=== PATIENT | female | born 1950 ===

== ENCOUNTER → 2017-04-07 | Outpatient (CLI) | payer OTHER ==
[~2017-04-07] MED LIST: ACET500 PO; AMLO5 PO; ASPI325 PO; ATEN50 PO; Ativan1 MG PO; CHOL10002 PO; CLON.1 PO; FURO20 PO; HYDCHL25 PO; LEVSOD100 PO; LOSA50 PO; METO25ER PO; NEBI5 PO; NIFE30ER PO; Nitrostat0.4 MG SL; POTCHL10ER PO; PROAIR RESPICL90 MCG INH; ROSU10TA PO; WATER PILL?
[2017-04-07 17:17] LABS: BASOPHILS ABSOLUTE AUTO 0.07 K/mm3 (0.00-0.23); BASOPHILS PERCENT AUTO 1 % (0-2); EOSINOPHILS ABSOLUTE AUTO 0.32 K/mm3 (0.00-0.68); EOSINOPHILS PERCENT AUTO 4 % (0-6); Hematocrit 38.3 % (33.0-51.0); Hemoglobin 12.7 g/dL (11.5-16.0); IMMATURE GRAN ABSOLUTE AUTO 0.01 K/mm3 (0.00-0.10); IMMATURE GRAN PERCENT AUTO 0 % (0-1); LYMPHOCYTES ABSOLUTE AUTO 2.33 K/mm3 (0.84-5.20); LYMPHOCYTES PERCENT AUTO 27 % (21-46); MONOCYTES ABSOLUTE AUTO 0.68 K/mm3 (0.16-1.47); MONOCYTES PERCENT AUTO 8 % (4-13); Mean Corpuscular HGB 28.2 pg (26.0-34.0); Mean Corpuscular HGB Conc 33.2 g/dL (31.5-36.5); Mean Corpuscular Volume 85 fL (80-100); Mean Platelet Volume 10.1 fL (9.1-12.4); NEUTROPHILS PERCENT AUTO 60 % (41-73); Platelet Count 301 K/mm3 (150-400); RDW Coefficient Variation 12.8 % (11.7-14.2); RDW Standard Deviation 39.2 fL (35.1-46.3); Red Blood Cell Count 4.51 M/mm3 (3.80-5.20); White Blood Cell Count 8.61 K/mm3 (4.00-11.30)
== END | disposition home or self-care (01) ==
LOC: LAB 15:32
PROVIDERS: Hospitalist
DX: R10.84 Generalized abdominal pain (principal)
CPT/HCPCS: 85025; 85651

== ENCOUNTER 2019-04-01 04:11 | Emergency (ER) | payer OTHER ==
[~2019-04-01] VITALS: Ht 149.9 cm; Wt 81.7 kg
[~2019-04-01 04:11] MED LIST changes: +NEBI10 PO; -NEBI5 PO
[2019-04-01 04:38] LABS: BASOPHILS ABSOLUTE AUTO 0.04 K/mm3 (0.00-0.23); BASOPHILS PERCENT AUTO 1 % (0-2); EOSINOPHILS ABSOLUTE AUTO 0.22 K/mm3 (0.00-0.68); EOSINOPHILS PERCENT AUTO 3 % (0-6); Hematocrit 41.6 % (33.0-51.0); Hemoglobin 13.6 g/dL (11.5-16.0); IMMATURE GRAN ABSOLUTE AUTO 0.02 K/mm3 (0.00-0.10); IMMATURE GRAN PERCENT AUTO 0 % (0-1); LYMPHOCYTES ABSOLUTE AUTO 1.65 K/mm3 (0.84-5.20); LYMPHOCYTES PERCENT AUTO 23 % (21-46); MONOCYTES ABSOLUTE AUTO 0.51 K/mm3 (0.16-1.47); MONOCYTES PERCENT AUTO 7 % (4-13); Mean Corpuscular HGB 28.3 pg (26.0-34.0); Mean Corpuscular HGB Conc 32.7 g/dL (31.5-36.5); Mean Corpuscular Volume 87 fL (80-100); NEUTROPHILS ABSOLUTE AUTO 4.73 K/mm3 (1.96-9.15); NEUTROPHILS PERCENT AUTO 66 % (41-73); Platelet Count 245 K/mm3 (150-400); RDW Coefficient Variation 12.7 % (11.7-14.2); RDW Standard Deviation 40.3 fL (35.1-46.3); White Blood Cell Count 7.17 K/mm3 (4.00-11.30)
[2019-04-01 05:00] LABS: Albumin, Blood 3.5 g/dL (3.4-5.0); Albumin/Globulin Ratio 0.8 (0.8-1.8); Bilirubin, Total 0.4 mg/dL (0.1-1.0); Bun/Creatinine Ratio 19.3 (12.0-20.0); Calcium, Blood 9.6 mg/dL (8.5-10.1); Creatinine, Blood 1.14 mg/dL (0.40-1.00); Globulin, Blood 4.5 g/dL (2.2-4.0); Potassium, Blood 3.9 mmol/L (3.5-5.5)
[2019-04-01] MEDS ORDERED: Valium5 MG PO (05:58)
[2019-04-01] MEDS ORDERED: Zofran4 MG PO (05:58)
== END 2019-04-01 07:48 | disposition home or self-care (01) ==
LOC: ER 04:11
PROVIDERS: Emergency Medicine
DX: R42 Dizziness and giddiness (principal); I10 Essential (primary) hypertension; I25.10 Atherosclerotic heart disease of native coronary artery without angina pectoris; E78.5 Hyperlipidemia, unspecified; E03.9 Hypothyroidism, unspecified; F41.0 Panic disorder [episodic paroxysmal anxiety]; Z88.8 Allergy status to other drugs, medicaments and biological substances; Z79.899 Other long term (current) drug therapy; Z79.51 Long term (current) use of inhaled steroids; Z79.82 Long term (current) use of aspirin
CPT/HCPCS: 36415; 80053; 85025; 93005; 93010; 96374; 96375; 99284-25; J2405; J3360

== ENCOUNTER → 2019-12-13 | Outpatient (CLI) | payer OTHER ==
[~2019-12-13] MED LIST changes: +IBUP600 PO; +NITR.4SL SL; +PROAIR DIGIHAL90 MCG; +Ultram50 MG PO; +Valium5 MG PO; +Zofran4 MG PO
[2019-12-13 15:27] LABS: Bun/Creatinine Ratio 30.8 (12.0-20.0); Calcium, Blood 9.7 mg/dL (8.5-10.1); Creatinine, Blood 1.17 mg/dL (0.40-1.00); Potassium, Blood 4.6 mmol/L (3.5-5.5)
== END | disposition home or self-care (01) ==
LOC: LAB SHORT 13:37 → LAB 13:37
PROVIDERS: Hospitalist
DX: E03.9 Hypothyroidism, unspecified (principal); I10 Essential (primary) hypertension
CPT/HCPCS: 80048; 84439; 84443

== ENCOUNTER → 2021-02-25 | Outpatient (CLI) | payer OTHER ==
[2021-02-25 15:36] LABS: Albumin, Blood 3.3 g/dL (3.4-5.0); Albumin/Globulin Ratio 0.8 (0.8-1.8); Bilirubin, Total 0.5 mg/dL (0.1-1.0); Bun/Creatinine Ratio 23.4 (12.0-20.0); Calcium, Blood 9.3 mg/dL (8.5-10.1); Creatinine, Blood 1.24 mg/dL (0.40-1.00); Free Thyroxine 1.45 ng/dL (0.70-1.60); Globulin, Blood 4.3 g/dL (2.2-4.0); Potassium, Blood 4.3 mmol/L (3.5-5.5); Thyroid Stimulating Hormone 0.578 uIU/mL (0.360-4.800); Total Protein, Blood 7.6 g/dL (6.4-8.2); Triiodothyronine, Free 2.55 pg/mL (2.18-3.98)
== END | disposition home or self-care (01) ==
LOC: LAB SHORT 09:25
PROVIDERS: Hospitalist
DX: E03.9 Hypothyroidism, unspecified (principal); N25.81 Secondary hyperparathyroidism of renal origin; I10 Essential (primary) hypertension
CPT/HCPCS: 80053; 83970; 84439; 84443; 84481

== ENCOUNTER 2021-06-03 08:39 | Day surgery (SDC) | payer OTHER ==
[~2021-06-03] VITALS: Ht 147.3 cm; Wt 82.8 kg
[2021-06-03] MEDS ORDERED: MIRALAX17 GM (09:27)
[2021-06-03] MEDS ORDERED: VITAMIN D33000 UNIT (09:27)
== END 2021-06-03 11:09 | disposition home or self-care (01) ==
LOC: ORSCSDS 08:39
PROVIDERS: Student in an Organized Health Care Education/Training Program
PROC: 0DB98ZX Excision of Duodenum, Via Natural or Artificial Opening Endoscopic, Diagnostic (ICD-10-PCS; principal; 2021-06-03 10:00)
PROC: 0DB78ZX Excision of Stomach, Pylorus, Via Natural or Artificial Opening Endoscopic, Diagnostic (ICD-10-PCS; principal; 2021-06-03 10:00)
PROC: 0DJD8ZZ Inspection of Lower Intestinal Tract, Via Natural or Artificial Opening Endoscopic (ICD-10-PCS; principal; 2021-06-03 10:00)
PROC: 0DB48ZX Excision of Esophagogastric Junction, Via Natural or Artificial Opening Endoscopic, Diagnostic (ICD-10-PCS; principal; 2021-06-03 10:00)
DX: Z12.11 Encounter for screening for malignant neoplasm of colon (principal); Z86.010 Personal history of colon polyps; K21.00 Gastro-esophageal reflux disease with esophagitis, without bleeding; K29.70 Gastritis, unspecified, without bleeding; K57.30 Diverticulosis of large intestine without perforation or abscess without bleeding; K64.8 Other hemorrhoids; K64.4 Residual hemorrhoidal skin tags; E03.9 Hypothyroidism, unspecified; E78.5 Hyperlipidemia, unspecified; I12.9 Hypertensive chronic kidney disease with stage 1 through stage 4 chronic kidney disease, or unspecified chronic kidney disease; N18.9 Chronic kidney disease, unspecified; R73.03 Prediabetes; I25.10 Atherosclerotic heart disease of native coronary artery without angina pectoris; Z79.899 Other long term (current) drug therapy; Z79.82 Long term (current) use of aspirin; E66.01 Morbid (severe) obesity due to excess calories; Z68.41 Body mass index [BMI] 40.0-44.9, adult
CPT/HCPCS: 43239; G0105; 82947; 88305; 88312; 88342; J2704; J7120

== ENCOUNTER → 2021-12-16 | Outpatient (CLI) | payer OTHER ==
[~2021-12-16] MED LIST changes: +MIRALAX17 GM; +VITAMIN D33000 UNIT
[2021-12-16 14:52] LABS: Bun/Creatinine Ratio 26.4 (12.0-20.0); Calcium, Blood 10.4 mg/dL (8.5-10.1); Creatinine, Blood 1.21 mg/dL (0.40-1.00); Potassium, Blood 4.4 mmol/L (3.5-5.5)
== END | disposition home or self-care (01) ==
LOC: LAB SHORT 09:00 → LAB 09:00
PROVIDERS: Hospitalist
DX: N18.31 Chronic kidney disease, stage 3a (principal)
CPT/HCPCS: 80048

== ENCOUNTER → 2022-01-30 | Outpatient (CLI) | payer OTHER ==
[2022-01-30 09:45] LABS: Albumin, Blood 3.4 g/dL (3.4-5.0); Albumin/Globulin Ratio 0.8 (0.8-1.8); Bilirubin, Direct 0.1 mg/dL (0.0-0.3); Bilirubin, Indirect 0.2 mg/dL (0.1-0.7); Bilirubin, Total 0.3 mg/dL (0.1-1.0); Globulin, Blood 4.4 g/dL (2.2-4.0); Total Protein, Blood 7.8 g/dL (6.4-8.2)
== END | disposition home or self-care (01) ==
LOC: LAB SHORT 06:12
PROVIDERS: Student in an Organized Health Care Education/Training Program
DX: K76.0 Fatty (change of) liver, not elsewhere classified (principal)
CPT/HCPCS: 36415; 80076

== ENCOUNTER 2022-06-17 11:02 | Day surgery (SDC) | payer OTHER ==
[~2022-06-17] VITALS: Ht 149.9 cm; Wt 79.4 kg
[2022-06-17] MEDS ORDERED: ASPI81CH (11:22)
--- NOTE | 2022-06-17 12:09 | NUR ---
06/17/22 1209 Shea Benson CALL LIGHT WITHIN REACH
[2022-06-17 14:47] VITALS: BP 129/65
== END 2022-06-17 14:45 | disposition home or self-care (01) ==
LOC: ORSCSDS 11:02
PROVIDERS: Student in an Organized Health Care Education/Training Program
PROC: 0DBL8ZX Excision of Transverse Colon, Via Natural or Artificial Opening Endoscopic, Diagnostic (ICD-10-PCS; principal; 2022-06-17 12:30)
PROC: 0DBP8ZX Excision of Rectum, Via Natural or Artificial Opening Endoscopic, Diagnostic (ICD-10-PCS; principal; 2022-06-17 12:30)
PROC: 0DBH8ZX Excision of Cecum, Via Natural or Artificial Opening Endoscopic, Diagnostic (ICD-10-PCS; principal; 2022-06-17 12:30)
PROC: 0DBK8ZX Excision of Ascending Colon, Via Natural or Artificial Opening Endoscopic, Diagnostic (ICD-10-PCS; principal; 2022-06-17 12:30)
PROC: 0DBM8ZX Excision of Descending Colon, Via Natural or Artificial Opening Endoscopic, Diagnostic (ICD-10-PCS; principal; 2022-06-17 12:30)
DX: Z12.11 Encounter for screening for malignant neoplasm of colon (principal); D12.0 Benign neoplasm of cecum; D12.2 Benign neoplasm of ascending colon; D12.4 Benign neoplasm of descending colon; K62.1 Rectal polyp; K57.30 Diverticulosis of large intestine without perforation or abscess without bleeding; K64.8 Other hemorrhoids; K76.0 Fatty (change of) liver, not elsewhere classified; I25.10 Atherosclerotic heart disease of native coronary artery without angina pectoris; I12.9 Hypertensive chronic kidney disease with stage 1 through stage 4 chronic kidney disease, or unspecified chronic kidney disease; N18.31 Chronic kidney disease, stage 3a; R73.03 Prediabetes; K21.9 Gastro-esophageal reflux disease without esophagitis; E03.9 Hypothyroidism, unspecified; E78.5 Hyperlipidemia, unspecified; F41.1 Generalized anxiety disorder; J45.909 Unspecified asthma, uncomplicated; Z79.82 Long term (current) use of aspirin; Z79.899 Other long term (current) drug therapy
CPT/HCPCS: 88305; J2704; J7120

== ENCOUNTER → 2023-01-21 | Outpatient (CLI) | payer OTHER ==
[~2023-01-21] MED LIST changes: +AMLO10 PO; +ASPI81CH PO; +B-121000 MC3; +B-121000 MC3 PO; +CARV6.25 PO; +EZET10 PO; -MIRALAX17 GM; +MIRALAX17 GM PO; +NITRO-DUR1 EAC1 TOP; +TICA90TA PO; -VITAMIN D33000 UNIT; +Vitamin D1000 UNI1 PO
[2023-01-21 22:51] LABS: Bun/Creatinine Ratio 22.8 (12.0-20.0); Calcium, Blood 9.3 mg/dL (8.5-10.1); Creatinine, Blood 1.14 mg/dL (0.40-1.00); Free Thyroxine 1.17 ng/dL (0.70-1.60); Potassium, Blood 4.5 mmol/L (3.5-5.5); Thyroid Stimulating Hormone 0.739 uIU/mL (0.360-4.800)
== END ==
LOC: LAB SHORT 14:17 → LAB 14:17
PROVIDERS: Hospitalist
DX: E03.9 Hypothyroidism, unspecified (principal); I12.9 Hypertensive chronic kidney disease with stage 1 through stage 4 chronic kidney disease, or unspecified chronic kidney disease
CPT/HCPCS: 80048; 84439; 84443

== ENCOUNTER 2023-01-31 19:35 | Inpatient (IN) | payer OTHER ==
[~2023-01-31] VITALS: Ht 149.9 cm; Wt 84.0 kg
[~2023-01-31 19:35] MED LIST changes: -AMLO10 PO; -B-121000 MC3; -B-121000 MC3 PO; -CARV6.25 PO; -EZET10 PO; -NITRO-DUR1 EAC1 TOP; -TICA90TA PO
[2023-01-31] MEDS ORDERED: AMLO10 PO (19:46)
[2023-01-31 20:10] LABS: BASOPHILS ABSOLUTE AUTO 0.04 K/mm3 (0.00-0.23); BASOPHILS PERCENT AUTO 0 % (0-2); EOSINOPHILS ABSOLUTE AUTO 0.33 K/mm3 (0.00-0.68); EOSINOPHILS PERCENT AUTO 4 % (0-6); Hematocrit 36.4 % (33.0-51.0); Hemoglobin 12.4 g/dL (11.5-16.0); IMMATURE GRAN ABSOLUTE AUTO 0.05 K/mm3 (0.00-0.10); IMMATURE GRAN PERCENT AUTO 1 % (0-1); LYMPHOCYTES ABSOLUTE AUTO 2.48 K/mm3 (0.84-5.20); LYMPHOCYTES PERCENT AUTO 27 % (21-46); MONOCYTES ABSOLUTE AUTO 0.68 K/mm3 (0.16-1.47); MONOCYTES PERCENT AUTO 7 % (4-13); Mean Corpuscular HGB 28.8 pg (26.0-34.0); Mean Corpuscular HGB Conc 34.1 g/dL (31.5-36.5); Mean Corpuscular Volume 85 fL (80-100); Mean Platelet Volume 9.8 fL (9.1-12.4); NEUTROPHILS ABSOLUTE AUTO 5.75 K/mm3 (1.96-9.15); NEUTROPHILS PERCENT AUTO 62 % (41-73); Platelet Count 286 K/mm3 (150-400); RDW Standard Deviation 39.8 fL (35.1-46.3); Red Blood Cell Count 4.31 M/mm3 (3.80-5.20); White Blood Cell Count 9.33 K/mm3 (4.00-11.30)
[2023-01-31 20:24] LABS: Albumin, Blood 3.4 g/dL (3.4-5.0); Albumin/Globulin Ratio 0.7 (0.8-1.8); Bilirubin, Total 0.2 mg/dL (0.1-1.0); Bun/Creatinine Ratio 30.5 (12.0-20.0); Calcium, Blood 9.1 mg/dL (8.5-10.1); Creatinine, Blood 1.41 mg/dL (0.40-1.00); Globulin, Blood 4.7 g/dL (2.2-4.0); Potassium, Blood 4.5 mmol/L (3.5-5.5); Total Protein, Blood 8.1 g/dL (6.4-8.2)
[2023-02-01] VITALS (9 sets, daily range): BP systolic 131–187; BP diastolic 40–73
[2023-02-01] MEDS ORDERED: NITRO-DUR1 EAC1 TOP (00:12)
[2023-02-01] MEDS ORDERED: B-121000 MC3 (00:16)
[2023-02-01] MEDS ORDERED: B-121000 MC3 PO (00:17)
--- NOTE | 2023-02-01 01:00 | NUR ---
PATIENT ARRIVAL ON UNIT AT 0010. SHE DENIES ANY CURRENT CHEST PAIN/PRESSURE OR LEFT ARM PAIN. NO CURRENT SYMPTOMS. PATIENT STATES A LOT OF WHAT HAPPENS WITH HER HEART SHE THINKS IS WHEN SHE IS ASLEEP. SHE STATES SHE STARTLES AWAKE AFTER 2 HOURS OFTEN THROUGH THE NIGHT. CHRISTOPHE IS HARD OF HEARING, LEFT EAR BETTER THAN RIGHT.
--- NOTE | 2023-02-01 02:42 | NUR ---
CALL FROM TELEMETRY, PATIENT RUNNING SINUS PERLA IN UPPPER 40S. PATIENNT ASYMPOMATIC AND SLEEPING AT THIS TIME. DR NIELSON NOTIFIED AND DR CASTILLO WITH ALARM LIMIT TO 45, AND STATES TO CONTACT HIM IF HR REACHING INTO 30S.
--- NOTE | 2023-02-01 04:14 | NUR ---
PATIENT WITH CHEST PAIN, EKG DONE AND SHOWOING SINUS PERLA 56. BLOOD PRESSURES WIDE AROUND 174/50. DR ORDERED NITRO SUBLINGUAL. 1 NITRO GIVEN WITH FULL RELIEVE AND LOWERING OF BLOOD PRESSURE.
[2023-02-01 04:27] LABS: BASOPHILS ABSOLUTE AUTO 0.03 K/mm3 (0.00-0.23); BASOPHILS PERCENT AUTO 0 % (0-2); EOSINOPHILS ABSOLUTE AUTO 0.23 K/mm3 (0.00-0.68); EOSINOPHILS PERCENT AUTO 2 % (0-6); Hematocrit 36.6 % (33.0-51.0); Hemoglobin 12.4 g/dL (11.5-16.0); IMMATURE GRAN ABSOLUTE AUTO 0.04 K/mm3 (0.00-0.10); IMMATURE GRAN PERCENT AUTO 0 % (0-1); LYMPHOCYTES ABSOLUTE AUTO 1.99 K/mm3 (0.84-5.20); LYMPHOCYTES PERCENT AUTO 21 % (21-46); MONOCYTES ABSOLUTE AUTO 0.54 K/mm3 (0.16-1.47); MONOCYTES PERCENT AUTO 6 % (4-13); Mean Corpuscular HGB 28.7 pg (26.0-34.0); Mean Corpuscular HGB Conc 33.9 g/dL (31.5-36.5); Mean Corpuscular Volume 85 fL (80-100); Mean Platelet Volume 9.5 fL (9.1-12.4); NEUTROPHILS ABSOLUTE AUTO 6.69 K/mm3 (1.96-9.15); NEUTROPHILS PERCENT AUTO 70 % (41-73); Platelet Count 280 K/mm3 (150-400); RDW Standard Deviation 40.3 fL (35.1-46.3); Red Blood Cell Count 4.32 M/mm3 (3.80-5.20); White Blood Cell Count 9.52 K/mm3 (4.00-11.30)
[2023-02-01 04:45] LABS: Albumin, Blood 3.1 g/dL (3.4-5.0); Albumin/Globulin Ratio 0.7 (0.8-1.8); Bilirubin, Total 0.2 mg/dL (0.1-1.0); Bun/Creatinine Ratio 31.7 (12.0-20.0); Creatinine, Blood 1.23 mg/dL (0.40-1.00); Globulin, Blood 4.5 g/dL (2.2-4.0); Potassium, Blood 4.7 mmol/L (3.5-5.5); Total Protein, Blood 7.6 g/dL (6.4-8.2)
--- NOTE | 2023-02-01 06:16 | NUR ---
PATIENT MEDICATED FOR CHEST PAIN PER EMAR. NO OTHER ACUTE EVENTS DURING SHIFT.
--- NOTE | 2023-02-01 09:51 | NUR ---
chest pain PT CALLED STATEING HER CHEST WAS HURTING. ON ASSESSMENT CHEST PAIN 6/10. DID NOT CHANGE WITH DEEP BREATHING OR PALPATION. HANDS SHAKING. RADIATION INTO HER LEFT JAW. VS TAKEN. STARTED HER ON OXYGEN AT 2L N/C. BP ELEVATED. CALLED DR WORTHINGTON AT 0920. ORDERS RECIEVED. EKG DONE, LABS DRAWN, ATIVAN GIVEN. COMMUNICATED WITH [facility]. THEY DELAYED THE LEXISCAN. CONFIRMED THAT NITRO SL WAS OK IF NEEDED. PT PAIN FREE ONCE EKG AND LABS WERE DONE. NO NITROGLYCERIN GIVEN. CALLED [facility]. SHE JUST LEFT FOR THE NEXT PART OF HER SCAN WITH OXYGEN ON. CONTINUE POC.
--- NOTE | 2023-02-01 10:21 | NUR ---
stress test PT RETURNED FROM STRESS TEST. SHE TOLERATED IT WELL. NO ANXIETY/TERROR, CHEST PAIN/PRESSURE. SHE REQUESTS ATIVAN AGAIN PRIOR TO THE SECOND PART OF HER STRESS TEST. SHE HAS RETURNED TO BED AND IS GOING TO TAKE A NAP. CARE ON GOING.
--- NOTE | 2023-02-01 15:17 | NUR ---
DEPRESSION WHILE VISITING WITH PT SHE STARTED TALKING ABOUT HER ANXIETY AND THEN HER DEPRESSION. SHE TALKED ABOUT HOW DEEP AND HARD THE WORLD SEEMS SOME DAYS. SHE TALKED ABOUT FEELING THAT SHE WOULD BE BETTER OFF GONE. SHE DOES HAVE A PART OF A PLAN. BUT ABSOULETLY DENIES HAVING SI RIGHT KNOW. SHE HAS APPROACHED DR MARSH, HER PCP, SHE HAS FILLED OUT THE ASSESSMENT QUESTIONARES AND ASKED FOR FOLLOW UP AND HAS NOT RECIEVED ANY. VISITED WITH PT ABOUT RESOURCES IN THE COMMUNITY. SHE DID STATE THAT WITH THE INCREASING FREQUENCY OF HER CHEST PAIN THAT IT'S MADE HER FEEL MORE DOWN. TALKED WITH HER ABOUT HER DISCHARGE PAPERWORK HAVING A LIST OF RESOURCES WELL. CARE ONGOING.
--- NOTE | 2023-02-02 04:27 | NUR ---
SHIFT SUMMARY PATIENT HAD NO ACUTE CHANGES. AXOX 4 AND INDEPENDENT TO BSC. PIV REMAINS INTACT. ON 2L O2 NC. TELE MONITOR SB 58. RT IN FOR SLEEP STUDY. VSS/AFEBRILE. DENIES PAIN, SOB, AND N/V. STRESS TEST PART TWO IN AM. SLEPT MOST OF THE SHIFT. CALL LIGHT IN REACH. BED IN LOWEST POSITION. WILL CONTINUE TO MONITOR UNTIL DAY SHIFT NURSE ASSUMES CARE.
[2023-02-02 05:02] LABS: BASOPHILS ABSOLUTE AUTO 0.03 K/mm3 (0.00-0.23); BASOPHILS PERCENT AUTO 0 % (0-2); EOSINOPHILS ABSOLUTE AUTO 0.25 K/mm3 (0.00-0.68); EOSINOPHILS PERCENT AUTO 4 % (0-6); Hemoglobin 12.6 g/dL (11.5-16.0); IMMATURE GRAN ABSOLUTE AUTO 0.02 K/mm3 (0.00-0.10); IMMATURE GRAN PERCENT AUTO 0 % (0-1); LYMPHOCYTES PERCENT AUTO 24 % (21-46); MONOCYTES ABSOLUTE AUTO 0.48 K/mm3 (0.16-1.47); MONOCYTES PERCENT AUTO 7 % (4-13); Mean Corpuscular HGB 28.8 pg (26.0-34.0); Mean Corpuscular HGB Conc 34.1 g/dL (31.5-36.5); Mean Corpuscular Volume 85 fL (80-100); Mean Platelet Volume 9.6 fL (9.1-12.4); NEUTROPHILS ABSOLUTE AUTO 4.55 K/mm3 (1.96-9.15); NEUTROPHILS PERCENT AUTO 65 % (41-73); Platelet Count 269 K/mm3 (150-400); RDW Coefficient Variation 13.2 % (11.7-14.2); RDW Standard Deviation 40.4 fL (35.1-46.3); Red Blood Cell Count 4.37 M/mm3 (3.80-5.20); White Blood Cell Count 7.03 K/mm3 (4.00-11.30)
[2023-02-02 05:04] VITALS: BP 151/56
[2023-02-02 05:19] LABS: Bun/Creatinine Ratio 30.4 (12.0-20.0); Calcium, Blood 9.1 mg/dL (8.5-10.1); Creatinine, Blood 1.15 mg/dL (0.40-1.00); Potassium, Blood 4.4 mmol/L (3.5-5.5)
[2023-02-02 07:22] VITALS: BP 165/59
[2023-02-02 16:39] VITALS: BP 178/59
--- NOTE | 2023-02-02 16:55 | NUR ---
SHIFT SUMMARY PT A&OX4 AND PLEASANT. PT C/O ANXIETY AT START OF SHIFT AND MEDICATED PER EMAR. PT ALSO C/O JAW AND CP AT ABOUT 0915. PER POTATO GRADER, NO EVENTS ON TELE. NITRO GIVEN PER EMAR. AFTER 5 MIN PT VERBALIZED RESOLVED SYMPTOMS. ABOUT 30 MIN LATER, PT AGAIN C/O JAW AND CP WITH NO EVENTS ON TELE. DR WORTHINGTON NOTIFIED AND NOW ORDER FOR ATIVAN GIVEN. DR WORTHINGTON ALSO CAME AND ROUNDED ON PT. PT STATED SHE FELT MUCH BETTER AFTER THE DR LEFT. PT HAD SECOND PART OF STRESS TEST TODAY. RESULTS WERE ABNORMAL AND DR WORTHINGTON STATED PT NEEDS A AS400 PROGRAMMER ANALYST REFERAL. DR WORTHINGTON WAS ATTEMPTING TO CALL [employer]400 PROGRAMMER ANALYST WHEN I SPOKE WITH HER. PT IS IND IN ROOM AND CALLS APPROPRIATLY. BED IN LOWEST POSITION AND CALL LIGHT IN REACH.
[2023-02-02 17:51] VITALS: BP 135/56
[2023-02-02 19:23] VITALS: BP 136/50
[2023-02-03] VITALS (10 sets, daily range): BP systolic 129–151; BP diastolic 49–87
--- NOTE | 2023-02-03 01:49 | NUR ---
PT IS A&OX4, INDEPENDENT ADLIB, PT IS ON TELE, DENIES CHEST PN AT THIS TIME, EXTENSIVE CARDIAC HS INCLUDING CAD, AND STENTSX2, DENIES DISCOMFORT. PT HAD SECOND STRESS TEST YESTERDAY AND WILL FOLLOW UP WITH CARDIOLGY OUTPATIENT. PLAN IS TO DC SOMETIME TOMMOROW. LUNGS ARE CLEAR T/O, PT ABDOMEN IS MILDLY DISTENDED PT STATES BASELINE NONE TENDER. BED LOWERED CESAR LIGHT IN REACH WILL CONTINUE TO MONITOR.
[2023-02-03 05:32] LABS: Bun/Creatinine Ratio 27.6 (12.0-20.0); Calcium, Blood 9.1 mg/dL (8.5-10.1); Creatinine, Blood 1.23 mg/dL (0.40-1.00); Potassium, Blood 4.3 mmol/L (3.5-5.5)
--- NOTE | 2023-02-03 13:35 | NUR ---
PT TO RECOVERY ROOM POST PROCEDURE. PT AWAKE AND CONVERSING APPROPRIATELY; DENIES CHEST PAIN POST INTERVENTION. MONITOR SB 48-50'S, B/P 137/83, SPO2 99% RA, AFEBRILE. R RADIAL SITE NO SWELLING/HEMATOMA, TR BAND IN PLACE; RUE POSITIVE PLEUTH POST TR BAND PLACEMENT. PT IS AWAITING ROOM ASSIGNMENT ON PCU.
--- NOTE | 2023-02-03 14:15 | NUR ---
REPORT CALLED TO RAE MALAVE; ALL QUESTIONS ANSWERED. PT TO PCU 9 VIA W/C, CONDITION STABLE.
--- NOTE | 2023-02-03 18:40 | NUR ---
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 This evening pt reporting sob and stating she is anxious, requesting ativan, medicated per emar, pt continues to report sob, notified MD, EKG completed, new order for lasix. Vss. Will continue to monitor.
[2023-02-04 03:52] VITALS: BP 124/60
[2023-02-04 04:02] LABS: BASOPHILS ABSOLUTE AUTO 0.03 K/mm3 (0.00-0.23); BASOPHILS PERCENT AUTO 0 % (0-2); EOSINOPHILS ABSOLUTE AUTO 0.28 K/mm3 (0.00-0.68); EOSINOPHILS PERCENT AUTO 3 % (0-6); Hematocrit 36.5 % (33.0-51.0); Hemoglobin 12.6 g/dL (11.5-16.0); IMMATURE GRAN ABSOLUTE AUTO 0.04 K/mm3 (0.00-0.10); IMMATURE GRAN PERCENT AUTO 0 % (0-1); LYMPHOCYTES ABSOLUTE AUTO 1.62 K/mm3 (0.84-5.20); LYMPHOCYTES PERCENT AUTO 17 % (21-46); MONOCYTES ABSOLUTE AUTO 0.67 K/mm3 (0.16-1.47); MONOCYTES PERCENT AUTO 7 % (4-13); Mean Corpuscular HGB 28.8 pg (26.0-34.0); Mean Corpuscular HGB Conc 34.5 g/dL (31.5-36.5); Mean Corpuscular Volume 83 fL (80-100); Mean Platelet Volume 9.4 fL (9.1-12.4); NEUTROPHILS ABSOLUTE AUTO 6.96 K/mm3 (1.96-9.15); NEUTROPHILS PERCENT AUTO 73 % (41-73); Platelet Count 267 K/mm3 (150-400); RDW Coefficient Variation 13.2 % (11.7-14.2); RDW Standard Deviation 40.2 fL (35.1-46.3); Red Blood Cell Count 4.38 M/mm3 (3.80-5.20)
[2023-02-04 04:26] LABS: Bun/Creatinine Ratio 27.1 (12.0-20.0); Creatinine, Blood 1.33 mg/dL (0.40-1.00); Potassium, Blood 4.1 mmol/L (3.5-5.5)
--- NOTE | 2023-02-04 06:26 | NUR ---
SHIFT SUMMARY PATIENT ALERT AND ORIENTED X4. HAD NO COMPMLAINTS OF PAIN OVERNIGHT. DID REPORT FEELING SHORT OF BREATH. PATIENT HAS BEEN ON ROOM AIR WITH SPO2 IN THE HIGH 90'S. VITAL SIGNS STABLE, SINUS PERLA ON TELE. PATIENT'S RIGHT RADIAL SITE HAS BEEN RECOVERED, NO BLEEDING OR BRUSING NOTED AT THE SITE, ARM BOARD IN PLACE. WILL CONTINUE TO MONITOR. CALL LIGHT WITHIN REACH.
[2023-02-04 07:59] VITALS: BP 136/46
[2023-02-04] MEDS ORDERED: CARV6.25 PO (12:41)
[2023-02-04] MEDS ORDERED: TICA90TA PO (12:42)
[2023-02-04] MEDS ORDERED: EZET10 PO (12:42)
[2023-02-04] MEDS ORDERED: FURO20 PO (12:42)
--- NOTE | 2023-02-04 13:00 | NUR ---
SHIFT SUMMARY AND DISCHARGE. PATIENT DISCHARGED TO HOME. DISCHARGE INSTRUCTIONS REVIEWED WITH PATIENT AND FAMILY IN THE ROOM. IV DC'D. PATIENT ALERT AND INDEPENDENT IN THE ROOM. PATIENT DENIES ANY CHEST PAIN. WRIST SITE COVERED WITH OCCLUSIVE DRESSING. NO BRUISING NOTED AT THE SITE. PATIENT TRANSPORTED OUT VIA WHEELCHAIR BY ENERGY EFFICIENCY SPECIALIST. ROOM CHECK DONE WHILE PATIENT STILL IN ROOM AND ALL BELONGINGS RETURNED TO PATIENT.
== END 2023-02-04 13:00 | disposition home or self-care (01) | DRG 247 ==
LOC: ER 19:35 → MEDS 19:36 → PCU 02-03 13:40
PROVIDERS: Emergency Medicine; Family Medicine; Hospitalist; Internal Medicine Cardiovascular Disease; ADMIT Internal Medicine
PROC: B2111ZZ Fluoroscopy of Multiple Coronary Arteries using Low Osmolar Contrast (ICD-10-PCS; principal; 2023-02-03)
PROC: 027034Z Dilation of Coronary Artery, One Artery with Drug-eluting Intraluminal Device, Percutaneous Approach (ICD-10-PCS; principal; 2023-02-03)
DX: I25.110 Atherosclerotic heart disease of native coronary artery with unstable angina pectoris (principal); I50.32 Chronic diastolic (congestive) heart failure; I13.0 Hypertensive heart and chronic kidney disease with heart failure and stage 1 through stage 4 chronic kidney disease, or unspecified chronic kidney disease; N18.30 Chronic kidney disease, stage 3 unspecified; E03.9 Hypothyroidism, unspecified; E78.5 Hyperlipidemia, unspecified; E66.9 Obesity, unspecified; Z95.5 Presence of coronary angioplasty implant and graft; Z79.82 Long term (current) use of aspirin; Z68.38 Body mass index [BMI] 38.0-38.9, adult
CPT/HCPCS: 36415; 71045; 76937; 78452; 80048; 80053; 83880; 84484; 85025; 85347; 92979; 93005; 93010; 93017; 93308; 93321; 93454; 94760; 96372; 96374; 96375; 99152; 99153; 99285-25; A9270; A9500; C1725; C1753; C1769; C1874; C1887; C1894; C9600; G0378; J0706; J1644; J1940; J2060; J2250; J2785; J3010; J7030; J7050; Q9967

== ENCOUNTER → 2023-02-11 | Outpatient (CLI) | payer OTHER ==
[~2023-02-11] MED LIST changes: +AMLO10 PO; +B-121000 MC3; +B-121000 MC3 PO; +CARV6.25 PO; +EZET10 PO; +NITRO-DUR1 EAC1 TOP; +TICA90TA PO
[2023-02-11 17:24] LABS: Bun/Creatinine Ratio 30.8 (12.0-20.0); Calcium, Blood 9.8 mg/dL (8.5-10.1); Creatinine, Blood 1.46 mg/dL (0.40-1.00); Potassium, Blood 4.6 mmol/L (3.5-5.5)
== END | disposition home or self-care (01) ==
LOC: LAB SHORT 13:49 → LAB 13:49
PROVIDERS: Hospitalist
DX: I12.9 Hypertensive chronic kidney disease with stage 1 through stage 4 chronic kidney disease, or unspecified chronic kidney disease (principal); N18.9 Chronic kidney disease, unspecified
CPT/HCPCS: 80048

== ENCOUNTER → 2023-06-18 | Outpatient (CLI) | payer OTHER ==
[2023-06-18 15:26] LABS: BASOPHILS ABSOLUTE AUTO 0.05 K/mm3 (0.00-0.23); BASOPHILS PERCENT AUTO 1 % (0-2); EOSINOPHILS PERCENT AUTO 4 % (0-6); Hematocrit 37.7 % (33.0-51.0); Hemoglobin 12.6 g/dL (11.5-16.0); IMMATURE GRAN ABSOLUTE AUTO 0.01 K/mm3 (0.00-0.10); IMMATURE GRAN PERCENT AUTO 0 % (0-1); LYMPHOCYTES ABSOLUTE AUTO 1.27 K/mm3 (0.84-5.20); LYMPHOCYTES PERCENT AUTO 18 % (21-46); MONOCYTES PERCENT AUTO 7 % (4-13); Mean Corpuscular HGB 29.2 pg (26.0-34.0); Mean Corpuscular HGB Conc 33.4 g/dL (31.5-36.5); Mean Corpuscular Volume 88 fL (80-100); Mean Platelet Volume 10.1 fL (9.1-12.4); NEUTROPHILS ABSOLUTE AUTO 4.95 K/mm3 (1.96-9.15); NEUTROPHILS PERCENT AUTO 70 % (41-73); Platelet Count 272 K/mm3 (150-400); RDW Coefficient Variation 13.1 % (11.7-14.2); RDW Standard Deviation 41.6 fL (35.1-46.3); Red Blood Cell Count 4.31 M/mm3 (3.80-5.20); White Blood Cell Count 7.08 K/mm3 (4.00-11.30)
[2023-06-18 16:10] LABS: Alanine Aminotransfer (ALT/SGP 45 U/L (12-78); Albumin, Blood 3.5 g/dL (3.4-5.0); Albumin/Globulin Ratio 0.8 (0.8-1.8); Alk Phos 84 U/L (50-136); Anion Gap 7 mmol/L (3-11); Aspartate Aminotrans (AST/SGOT 19 U/L (12-37); Bilirubin, Total 0.3 mg/dL (0.1-1.0); Blood Urea Nitrogen 23 mg/dL (8-24); Bun/Creatinine Ratio 20.4 (12.0-20.0); CHOL/HDL RATIO 4.1; CO2, Blood 27 mmol/L (21-32); Calcium, Blood 9.4 mg/dL (8.5-10.1); Chloride, Blood 107 mmol/L (98-108); Cholesterol 180 mg/dL (50-200); Creatinine, Blood 1.13 mg/dL (0.40-1.00); Free Thyroxine 1.46 ng/dL (0.70-1.60); Globulin, Blood 4.4 g/dL (2.2-4.0); Glomerular Filtration Rate 51 (60-); Glucose, Blood 98 mg/dL (70-99); HDL Cholesterol 44 mg/dL (>39); LDL/HDL RATIO 2.1; Low Density Lipoprotein Chol 93 mg/dL (0-110); Potassium, Blood 4.2 mmol/L (3.5-5.5); Sodium, Blood 137 mmol/L (136-145); Thyroid Stimulating Hormone 0.268 uIU/mL (0.360-4.800); Total Protein, Blood 7.9 g/dL (6.4-8.2); Triglycerides 214 mg/dL (30-160); Very Low Density Lipoprot Chol 42 mg/dL (6-32)
== END | disposition home or self-care (01) ==
LOC: LAB 14:11 → LAB SHORT 14:11
PROVIDERS: Hospitalist
DX: I12.9 Hypertensive chronic kidney disease with stage 1 through stage 4 chronic kidney disease, or unspecified chronic kidney disease (principal); N18.9 Chronic kidney disease, unspecified; E03.9 Hypothyroidism, unspecified; E78.2 Mixed hyperlipidemia; N25.81 Secondary hyperparathyroidism of renal origin
CPT/HCPCS: 80053; 80061; 83970; 84439; 84443; 85025

== ENCOUNTER 2023-09-16 20:55 | Inpatient (IN) | payer OTHER ==
[~2023-09-16] VITALS: Ht 149.9 cm; Wt 82.5 kg
[~2023-09-16 20:55] MED LIST changes: -CARV6.25 PO; +Carvedilol12.5 MG PO
[2023-09-16 21:16] LABS: BASOPHILS ABSOLUTE AUTO 0.03 K/mm3 (0.00-0.23); BASOPHILS PERCENT AUTO 1 % (0-2); EOSINOPHILS PERCENT AUTO 0 % (0-6); Hematocrit 38.2 % (33.0-51.0); IMMATURE GRAN ABSOLUTE AUTO 0.03 K/mm3 (0.00-0.10); IMMATURE GRAN PERCENT AUTO 1 % (0-1); LYMPHOCYTES ABSOLUTE AUTO 0.94 K/mm3 (0.84-5.20); LYMPHOCYTES PERCENT AUTO 14 % (21-46); MONOCYTES PERCENT AUTO 3 % (4-13); Mean Corpuscular HGB 29.1 pg (26.0-34.0); Mean Corpuscular Volume 86 fL (80-100); Mean Platelet Volume 9.7 fL (9.1-12.4); NEUTROPHILS PERCENT AUTO 82 % (41-73); Platelet Count 244 K/mm3 (150-400); RDW Coefficient Variation 13.2 % (11.7-14.2); RDW Standard Deviation 41.1 fL (35.1-46.3); Red Blood Cell Count 4.47 M/mm3 (3.80-5.20)
[2023-09-16 21:36] LABS: Albumin, Blood 3.4 g/dL (3.4-5.0); Albumin/Globulin Ratio 0.7 (0.8-1.8); Bilirubin, Total 0.2 mg/dL (0.1-1.0); Bun/Creatinine Ratio 31.4 (12.0-20.0); Creatinine, Blood 1.21 mg/dL (0.40-1.00); Globulin, Blood 4.9 g/dL (2.2-4.0); Potassium, Blood 4.5 mmol/L (3.5-5.5); Total Protein, Blood 8.3 g/dL (6.4-8.2)
[2023-09-16 22:05] LABS: Prothrombin Time Results 10.7 Sec (9.7-11.5)
[2023-09-16] MEDS ORDERED: Aspirin 81 MG Chew PO ONE (22:15)
[2023-09-16] MEDS ORDERED: Acetaminophen 325 MG TABLET PO PRN (22:50)
[2023-09-16] MEDS ORDERED: Nitroglycerin 0.4 MG SUBL SL PRN (23:20)
[2023-09-16] MEDS ORDERED: HydrALAZINE HCl 20 MG / ML 1ML Vial IV PRN (23:35)
[2023-09-16 23:51] LABS: Anti-Xa UFH, PHA Monitoring <0.10 IU/mL
[2023-09-17] VITALS (8 sets, daily range): BP systolic 96–188; BP diastolic 39–61
[2023-09-17] MEDS ORDERED: Dose Adjust by Pharmacy XX STA ×3 (00:37→14:44)
[2023-09-17] MEDS ORDERED: Heparin Sodium 5000 Units/ML 1ML MDV IV ONE (00:40)
[2023-09-17] MEDS ORDERED: Heparin Sodium,Porcine/0.5 NS 500 ML IV SCH (00:40)
[2023-09-17] MEDS ORDERED: TORS10 PO (02:15)
[2023-09-17 03:25] LABS: BASOPHILS ABSOLUTE AUTO 0.03 K/mm3 (0.00-0.23); BASOPHILS PERCENT AUTO 0 % (0-2); EOSINOPHILS ABSOLUTE AUTO 0.15 K/mm3 (0.00-0.68); EOSINOPHILS PERCENT AUTO 2 % (0-6); Hemoglobin 13.1 g/dL (11.5-16.0); IMMATURE GRAN ABSOLUTE AUTO 0.05 K/mm3 (0.00-0.10); IMMATURE GRAN PERCENT AUTO 1 % (0-1); LYMPHOCYTES ABSOLUTE AUTO 1.54 K/mm3 (0.84-5.20); LYMPHOCYTES PERCENT AUTO 18 % (21-46); MONOCYTES ABSOLUTE AUTO 0.58 K/mm3 (0.16-1.47); MONOCYTES PERCENT AUTO 7 % (4-13); Mean Corpuscular HGB 28.4 pg (26.0-34.0); Mean Corpuscular HGB Conc 33.6 g/dL (31.5-36.5); Mean Corpuscular Volume 85 fL (80-100); Mean Platelet Volume 9.7 fL (9.1-12.4); NEUTROPHILS ABSOLUTE AUTO 6.39 K/mm3 (1.96-9.15); NEUTROPHILS PERCENT AUTO 73 % (41-73); Platelet Count 243 K/mm3 (150-400); RDW Coefficient Variation 13.2 % (11.7-14.2); RDW Standard Deviation 40.4 fL (35.1-46.3); Red Blood Cell Count 4.61 M/mm3 (3.80-5.20); White Blood Cell Count 8.74 K/mm3 (4.00-11.30)
[2023-09-17 04:08] LABS: Albumin, Blood 3.5 g/dL (3.4-5.0); Albumin/Globulin Ratio 0.8 (0.8-1.8); Bilirubin, Total 0.2 mg/dL (0.1-1.0); Bun/Creatinine Ratio 32.1 (12.0-20.0); Calcium, Blood 9.2 mg/dL (8.5-10.1); Creatinine, Blood 1.12 mg/dL (0.40-1.00); Globulin, Blood 4.5 g/dL (2.2-4.0); Magnesium, Blood 2.2 mg/dL (1.6-2.4); Potassium, Blood 4.2 mmol/L (3.5-5.5)
[2023-09-17 05:13] LABS: Thyroid Stimulating Hormone 0.574 uIU/mL (0.360-4.800)
[2023-09-17] MEDS ORDERED: Levothyroxine Sodium 0.125 MG Tab PO SCH (06:00)
[2023-09-17] MEDS ORDERED: NITROGLYCERIN 0.6 MG/HR TOP SCH (06:00)
--- NOTE | 2023-09-17 06:47 | NUR ---
SHIFT SUMMARY PATIENT ARRIVED TO PCU 13 VIA STRETCHER. PATIENT ALERT AND ORIENTED, INDEPENDENT IN HER ROOM. PATIENT DENIED HAVING ANY CHEST PAIN OR PRESSURE. MEDICATED PER EMAR FOR HYPERTENSION. SHE IS ON ROOM AIR WITH SPO2 >90%. SINUS PERLA IN THE 50'S ON TELE. NO ACUTE ISSUES NOTED OVERNIGHT. WILL CONTINUE TO MONITOR. CALL LIGHT WITHIN REACH.
[2023-09-17] MEDS ORDERED: Carvedilol 6.25 MG Tab PO SCH (08:00)
[2023-09-17] MEDS ORDERED: Cholecalciferol 1000 Unit Tablet (=25MCG) PO SCH (09:00)
[2023-09-17] MEDS ORDERED: Losartan Potassium 50 MG Tab PO SCH (09:00)
[2023-09-17] MEDS ORDERED: Allopurinol 100 MG Tab PO SCH (09:00)
[2023-09-17] MEDS ORDERED: Atorvastatin 40 MG Tab PO SCH (09:00)
[2023-09-17] MEDS ORDERED: Aspirin 81 MG Chew PO SCH (09:00)
[2023-09-17] MEDS ORDERED: Ticagrelor 90 MG TABLET PO SCH (09:00)
[2023-09-17] MEDS ORDERED: Polyethylene Glycol 3350 17 gm PO PRN (12:05)
[2023-09-17] MEDS ORDERED: POTA10T PO (12:20)
[2023-09-17] MEDS ORDERED: LORazepam 0.5 MG Tab PO PRN (14:25)
--- NOTE | 2023-09-17 17:31 | NUR ---
SHIFT SUMMARY PT A&Ox4, CALLS AND COMMUNICATES NEEDS APPROPRIATELY. BP ELEVATED AT START OF SHIFT, MANAGED WITH SCHEDULED MEDS ON EMAR; BP SOFT WITH SBP 90's DURING NOON VS CHECK, PT REPORTED FEELING MILDLY DIZZY/LIGHTHEADED AND FELT THAT SHE NEEDED TO LAY DOWN. BP IMPROVED ON ITS OWN SHORTLY AFTER LYING DOWN AND PT REPORTED FEELING BETTER. SB-SR 50-70's, DENIED CP/PRESSURE THROUGHOUT SHIFT. PT HAD 1st PORTION OF STRESS TEST DONE AND IS TO HAVE 2nD PORTION DONE IN AM OF 09/17. PT SBA/IND IN ROOM, CONTINENT OF URINE AND BOWEL. PT REPORTED HAVING ONE EPISODE OF LOOSE STOOL. NO OTHER EVENTS, WILL REPORT TO ONCOMING RN.
[2023-09-18 00:08] VITALS: BP 193/56
[2023-09-18 01:27] VITALS: BP 175/48
--- NOTE | 2023-09-18 04:50 | NUR ---
Patient without Chest pain during the night, chronic hip pain due to gout relieved with ice packs. 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 SB/NSR on telemetry. NPO for 2nd portion of stress test this AM. A&Ox4, ambulating independently in the room. No reports of dizziness this shift. No other complaints at this time.
[2023-09-18] MEDS ORDERED: Pantoprazole Sodium 40 MG Tab PO SCH (06:00)
[2023-09-18 07:39] VITALS: BP 180/53
[2023-09-18] MEDS ORDERED: LORazepam 0.5 MG Tab PO ONE (07:50)
[2023-09-18 08:10] VITALS: BP 173/38
[2023-09-18] MEDS ORDERED: Ezetimibe 10 MG Tab PO SCH (09:00)
[2023-09-18] MEDS ORDERED: AmLODIPine Besylate 5 MG Tab PO SCH (09:00)
[2023-09-18] MEDS ORDERED: Cyanocobalamin 500 MCG Tab PO SCH (09:00)
[2023-09-18] MEDS ORDERED: Caffeine Citrated 60 MG/3 ML Vial ONE (10:27)
[2023-09-18] MEDS ORDERED: Regadenoson 0.4 MG/5 ML SYRINGE ONE (10:27)
[2023-09-18 11:53] VITALS: BP 127/51
[2023-09-18] MEDS ORDERED: PANT40 PO (13:36)
[2023-09-18] MEDS ORDERED: HYDRA25 PO (13:38)
[2023-09-18 14:28] VITALS: BP 169/63
--- NOTE | 2023-09-18 14:55 | NUR ---
D/C SUMMARY I WENT OVER D/C INSTRUCTIONS WITH THE PT AND HER PARTNER. I ANSWERED ALL QUESTIONS THEY HAD. HER MEDICATIONS WERE FAXED TO [facility]. VS STABLE. HER IV WAS DISCHARGED W/O ANY ISSUE AND THE SITE WAS WRAPPED WITH COBAN AND GAUZE. THE PT INSISTED ON WALKING OUT OF THE HOSPITAL. NO FURTHER NOTES.
[2023-09-19] MEDS ORDERED: Torsemide 10 MG TAB PO SCH (09:00)
== END 2023-09-18 14:52 | disposition home or self-care (01) | DRG 305 ==
LOC: ER 20:55 → PCU 20:56
PROVIDERS: Emergency Medicine; Family Medicine; ADMIT Internal Medicine
DX: I16.0 Hypertensive urgency (principal); I50.32 Chronic diastolic (congestive) heart failure; I24.9 Acute ischemic heart disease, unspecified; I25.10 Atherosclerotic heart disease of native coronary artery without angina pectoris; N18.30 Chronic kidney disease, stage 3 unspecified; M10.9 Gout, unspecified; E78.5 Hyperlipidemia, unspecified; E03.9 Hypothyroidism, unspecified; K21.9 Gastro-esophageal reflux disease without esophagitis; I13.0 Hypertensive heart and chronic kidney disease with heart failure and stage 1 through stage 4 chronic kidney disease, or unspecified chronic kidney disease; E66.9 Obesity, unspecified; E88.810 Metabolic syndrome; Z95.5 Presence of coronary angioplasty implant and graft; Z79.82 Long term (current) use of aspirin; Z88.8 Allergy status to other drugs, medicaments and biological substances; Z79.890 Hormone replacement therapy; Z68.36 Body mass index [BMI] 36.0-36.9, adult
CPT/HCPCS: 36415; 71046; 78452; 80053; 83735; 84443; 84484; 85025; 85520; 85610; 85730; 93005; 93010; 93017; 93306; 96374; 96375; 99285-25; A9270; A9500; G0378; J0360; J0706; J1644; J2785

== ENCOUNTER → 2023-11-25 | Outpatient (CLI) | payer OTHER ==
[~2023-11-25] MED LIST changes: +HYDRA25 PO; +PANT40 PO; +POTA10T PO; +TORS10 PO
[2023-11-25 08:33] LABS: Source, Urine Clean Catch
[2023-11-25 09:28] LABS: Appearance, Urine Clear (Clear); Bilirubin, Urine Neg (Neg); Blood, Urine Neg (Neg); Color, Urine Yellow (P-Yellow); Glucose Qualitative, Urine Neg (Neg); Ketones, Urine Neg (Neg); Leukocyte Esterase, Urine Neg (Neg); Nitrite, Urine Neg (Neg); Protein, Urine 1+ (Neg); Urobilinogen, Urine NORM (Normal)
[2023-11-25 09:54] LABS: Protein, Urine Random 20.6 mg/dL (0.0-11.9); Protein/Creat Ratio, Ur Random 0.2
[2023-11-25 10:15] LABS: Albumin, Blood 3.2 g/dL (3.4-5.0); Albumin/Globulin Ratio 0.7 (0.8-1.8); Bilirubin, Total 0.4 mg/dL (0.1-1.0); Calcium, Blood 9.1 mg/dL (8.5-10.1); Creatinine, Blood 1.48 mg/dL (0.40-1.00); Globulin, Blood 4.4 g/dL (2.2-4.0); Phosphorus, Blood 3.4 mg/dL (2.5-4.9); Total Protein, Blood 7.6 g/dL (6.4-8.2); Uric Acid, Blood 7.9 mg/dL (2.6-6.0)
== END | disposition home or self-care (01) ==
LOC: LAB SHORT 08:30 → LAB 08:30
PROVIDERS: Hospitalist
DX: I12.9 Hypertensive chronic kidney disease with stage 1 through stage 4 chronic kidney disease, or unspecified chronic kidney disease (principal); N18.31 Chronic kidney disease, stage 3a; M10.9 Gout, unspecified
CPT/HCPCS: 36415; 80053; 82570; 84100; 84156; 84550